=== PATIENT | female | born 1975 | race Caucasian/White ===

== ENCOUNTER 2021-06-05 07:31 | Day surgery (SDC) | payer OTHER | END 2021-06-10 22:48 | disposition home or self-care (01) | LOC: MOI US 07:31 → MOI MAM 08:00 → EDSTATUS 08:00 → MOI US 08:00 → MOI MAM 06-08 10:15 → MOI US 06-10 22:48 → MOI MAM 06-29 10:15 | DX: C50.512 Malignant neoplasm of lower-outer quadrant of left female breast (principal); C77.3 Secondary and unspecified malignant neoplasm of axilla and upper limb lymph nodes; Z17.0 Estrogen receptor positive status [ER+] | CPT/HCPCS: 19083; 38505; 76942; 77065; 88305; 88360; A4648; G0279 ==

== ENCOUNTER 2021-07-07 08:15 | Day surgery (SDC) | payer OTHER ==
[~2021-07-07] VITALS: Ht 172.7 cm; Wt 99.3 kg
[~2021-07-07 08:15] MED LIST: MULVITA PO
[2021-07-07] MEDS ORDERED: IBUP200 PO (08:43)
--- NOTE | 2021-07-07 11:43 | NUR ---
Patient up to Ambulate independently. Gait steady. Dressing to procedure site clean, dry, intact with no visible drainage, swelling, erythema or bruising noted. Discharge instructions reviewed with patient. Patient verbalizes understanding. Copy given to patient to take home. Patient States Post-Procedure ride home has been arranged. Discharged via wheelchair to private car for ride home. ALL BELONGINGS RETURNED TO PATIENT.
--- NOTE | 2021-07-10 10:51 | NUR ---
07/10/21 1051 Fartun Flowers VERIFICATIONS: EDIT CHART.
== END 2021-07-07 22:36 | disposition home or self-care (01) ==
LOC: ORSCMMR 08:15 → ORD 09:30 → ORSCMMR 22:36
PROVIDERS: Surgery
PROC: 05HM33Z Insertion of Infusion Device into Right Internal Jugular Vein, Percutaneous Approach (ICD-10-PCS; principal; 2021-07-07 09:30)
PROC: B543ZZA Ultrasonography of Right Jugular Veins, Guidance (ICD-10-PCS; principal; 2021-07-07 09:30)
DX: C50.512 Malignant neoplasm of lower-outer quadrant of left female breast (principal); F17.210 Nicotine dependence, cigarettes, uncomplicated; Z17.0 Estrogen receptor positive status [ER+]
CPT/HCPCS: 77001; 82947; A9270; C1788; J0690; J1100; J1642; J2250; J2370; J2405; J2704; J3010; J7120

== ENCOUNTER → 2021-12-09 | Day surgery (SDC) | payer OTHER ==
[~2021-12-09] MED LIST changes: +ACET80; +Chantix1 MG PO; +IBUP200 PO; +KAZANO PO; +LORA10ER PO; +OMEP20ER PO; +Prinivil10 MG PO
== END ==
LOC: MOI MAM 09:49
DX: C50.512 Malignant neoplasm of lower-outer quadrant of left female breast (principal); Z17.0 Estrogen receptor positive status [ER+]
CPT/HCPCS: 19281; A4648

== ENCOUNTER 2021-12-18 08:19 | Day surgery (SDC) | payer OTHER ==
[~2021-12-18] VITALS: Ht 172.7 cm; Wt 87.2 kg
--- NOTE | 2021-12-18 14:47 | NUR ---
Patient up to Ambulate independently. Gait steady. Discharge instructions reviewed with patient. Patient verbalizes understanding. Copy given to patient to take home. Dressing to procedure site clean, dry, intact with no visible drainage, swelling, erythema or bruising noted. Patient States Post-Procedure ride home has been arranged. Discharged via wheelchair to private car for ride home. ALL BELONINGS RETURNED TO PATIENT.
--- NOTE | 2021-12-21 07:24 | NUR ---
12/21/21 0724 Fartun Flowers VERIFICATIONS: EDIT CHART.
== END 2021-12-18 23:00 | disposition home or self-care (01) ==
LOC: ORSCMMR 08:19 → NM 09:00 → ORSCMMR 09:00
PROVIDERS: Surgery
PROC: 07B60ZX Excision of Left Axillary Lymphatic, Open Approach, Diagnostic (ICD-10-PCS; principal; 2021-12-18 10:30)
PROC: 0HBU0ZZ Excision of Left Breast, Open Approach (ICD-10-PCS; principal; 2021-12-18 10:30)
DX: C50.512 Malignant neoplasm of lower-outer quadrant of left female breast (principal); Z17.0 Estrogen receptor positive status [ER+]; D36.0 Benign neoplasm of lymph nodes; I10 Essential (primary) hypertension; E11.9 Type 2 diabetes mellitus without complications; F17.210 Nicotine dependence, cigarettes, uncomplicated; Z79.899 Other long term (current) drug therapy; Z79.84 Long term (current) use of oral hypoglycemic drugs
CPT/HCPCS: 38792; 82947; 88305; 88307; 88341; 88342; A9270; A9520; J0690; J1100; J2250; J2370; J2405; J2704; J3010; J7120; Q9968

== ENCOUNTER 2022-04-09 14:32 | Emergency (ER) | payer OTHER ==
[~2022-04-09] VITALS: Ht 172.7 cm; Wt 86.2 kg
[2022-04-09] MEDS ORDERED: METFORMIN HCL500 M3 PO (15:00)
[2022-04-09] MEDS ORDERED: ALOGLIPTIN12.5 M7 PO (15:01)
[2022-04-09] MEDS ORDERED: TAMO10 PO (15:01)
[2022-04-09 15:12] LABS: BASOPHILS ABSOLUTE AUTO 0.03 K/mm3 (0.00-0.23); BASOPHILS PERCENT AUTO 0 % (0-2); EOSINOPHILS ABSOLUTE AUTO 0.13 K/mm3 (0.00-0.68); EOSINOPHILS PERCENT AUTO 2 % (0-6); Hematocrit 37.3 % (33.0-51.0); Hemoglobin 13.4 g/dL (11.5-16.0); IMMATURE GRAN ABSOLUTE AUTO 0.03 K/mm3 (0.00-0.10); IMMATURE GRAN PERCENT AUTO 0 % (0-1); LYMPHOCYTES ABSOLUTE AUTO 2.62 K/mm3 (0.84-5.20); LYMPHOCYTES PERCENT AUTO 34 % (21-46); MONOCYTES ABSOLUTE AUTO 0.47 K/mm3 (0.16-1.47); MONOCYTES PERCENT AUTO 6 % (4-13); Mean Corpuscular HGB 32.8 pg (26.0-34.0); Mean Corpuscular HGB Conc 35.9 g/dL (31.5-36.5); Mean Corpuscular Volume 91 fL (80-100); Mean Platelet Volume 10.2 fL (9.1-12.4); NEUTROPHILS ABSOLUTE AUTO 4.34 K/mm3 (1.96-9.15); NEUTROPHILS PERCENT AUTO 57 % (41-73); Platelet Count 223 K/mm3 (150-400); RDW Coefficient Variation 12.5 % (11.7-14.2); RDW Standard Deviation 41.3 fL (35.1-46.3); Red Blood Cell Count 4.09 M/mm3 (3.80-5.20); White Blood Cell Count 7.62 K/mm3 (4.00-11.30)
[2022-04-09 15:32] LABS: Albumin, Blood 3.9 g/dL (3.4-5.0); Albumin/Globulin Ratio 1.1 (0.8-1.8); Bilirubin, Total 0.2 mg/dL (0.1-1.0); Bun/Creatinine Ratio 16.8 (12.0-20.0); Calcium, Blood 9.6 mg/dL (8.5-10.1); Creatinine, Blood 0.65 mg/dL (0.40-1.00); Globulin, Blood 3.6 g/dL (2.2-4.0); Potassium, Blood 3.6 mmol/L (3.5-5.5); Total Protein, Blood 7.5 g/dL (6.4-8.2)
[2022-04-09] MEDS ORDERED: CLIN150 PO (17:05)
== END 2022-04-09 17:15 | disposition home or self-care (01) ==
LOC: ER 14:32
PROVIDERS: Physician Assistant
DX: L03.011 Cellulitis of right finger (principal); F17.210 Nicotine dependence, cigarettes, uncomplicated
CPT/HCPCS: 36415; 73140; 80053; 83605; 85025; J0696

== ENCOUNTER 2023-11-15 06:39 | Day surgery (SDC) | payer OTHER ==
[~2023-11-15] VITALS: Ht 172.7 cm; Wt 91.7 kg
[~2023-11-15 06:39] MED LIST changes: +ALOGLIPTIN12.5 M7 PO; +CLIN150 PO; +METFORMIN HCL500 M3 PO; +TAMO10 PO
[2023-11-15] MEDS ORDERED: JARDIANCE10 MG (07:11)
[2023-11-15] MEDS ORDERED: TRADJENTA5 MG (07:12)
[2023-11-15] MEDS ORDERED: LORA10ER (07:12)
[2023-11-15] MEDS ORDERED: ACET500 (07:13)
[2023-11-15] MEDS ORDERED: ELLURA200 MG (07:13)
[2023-11-15] MEDS ORDERED: Lactated Ringer's 1,000 ML IV ONE ×2 (07:22→07:51)
[2023-11-15] MEDS ORDERED: propofoL 50 ML IV ONE (07:24)
[2023-11-15 09:05] VITALS: BP 158/89
== END 2023-11-15 08:54 | disposition home or self-care (01) ==
LOC: ORSCSDS 06:39
PROVIDERS: Surgery
PROC: 0DBK8ZX Excision of Ascending Colon, Via Natural or Artificial Opening Endoscopic, Diagnostic (ICD-10-PCS; principal; 2023-11-15 08:00)
PROC: 0DBL8ZX Excision of Transverse Colon, Via Natural or Artificial Opening Endoscopic, Diagnostic (ICD-10-PCS; principal; 2023-11-15 08:00)
DX: Z12.11 Encounter for screening for malignant neoplasm of colon (principal); D12.2 Benign neoplasm of ascending colon; D12.3 Benign neoplasm of transverse colon; K57.30 Diverticulosis of large intestine without perforation or abscess without bleeding; E11.9 Type 2 diabetes mellitus without complications; I10 Essential (primary) hypertension; F17.210 Nicotine dependence, cigarettes, uncomplicated; Z85.3 Personal history of malignant neoplasm of breast; Z79.84 Long term (current) use of oral hypoglycemic drugs; Z79.899 Other long term (current) drug therapy
CPT/HCPCS: 82947; 88305; J2704; J7120